=== PATIENT | male | born 1980 | race Hispanic/Latino ===

== ENCOUNTER 2017-03-17 01:49 | Emergency (ER) | payer OTHER ==
[2017-03-17 02:42] VITALS: BP 110/77
[2017-03-17] MEDS ORDERED: FUL-GLO OP ONE (05:22)
[2017-03-17] MEDS ORDERED: TETRACAINE 0.5% OU ONE (05:23)
--- NOTE | 2017-03-17 07:26 | Emergency Department Report ---
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 denies: eye pain (patient denies pain and refused pain medication) , eye discharge, vision change ENT: denies: ear pain, throat pain Respiratory: denies: cough, shortness of breath, wheezing Cardiovascular: denies: chest pain, palpitations Endocrine: no symptoms reported Gastrointestinal: denies: abdominal pain, nausea, diarrhea Genitourinary: denies: urgency, dysuria Musculoskeletal: denies: back pain, joint swelling, arthralgia Skin: denies: rash, lesions Neurological: denies: headache, weakness, paresthesias Psychiatric: denies: anxiety, depression Hematological/Lymphatic: denies: easy bleeding, easy bruising ED Past Medical Hx - Past Medical History Previous Medical History?: No - Surgical History Past Surgical History?: No - Social History Smoking Status: Current Every Day Smoker Substance Use Type: Alcohol - Medications Home Medications: Home Medications Medication Instructions Recorded Confirmed Last Taken Type HYDROcodone/APAP 5-325 [[place] 1 each PO Q6HR PRN #15 tablet 03/17/17 Unknown Rx 5/325] Tobramycin 1 drop OS QID #1 bottle 03/17/17 Unknown Rx Eye Injury Exam - Exam General: Vital signs noted. No distress. Alert and acting appropriately. - Visual Acuity Left Vision Acuity Degree: 20/30 Eye Exam: Left Injection, Left EOMI, Left Eye Foreign Body, Left Fluorescein Uptake (wood's lamp), Neither Abnormal Pupil (none), Neither Lid Foreign Body, Neither Mucous Discharge, Neither Purulent Discharge, Neither Photophobia (none) Right Vision Acuity Degree: 20/30 Bilateral Vision Acuity Degree: 20/30 ED Course Vital Signs 03/17/17 02:07 Temperature 97.6 F Pulse Rate 63 Respiratory 18 Rate Blood Pressure 110/77 [Right] O2 Sat by Pulse 97 Oximetry ED Medical Decision Making - Medical Decision Making 36 year old male presents to ED with left eye foreign body consistent with rust ring. patient will be referred to back order clerk for removal and understands he needs to follow up with Eye MD within 24 hours. no corneal penetration noted on examination. patient will be given pain medication and antibiotic eye drops until further evaluation by back order clerk today. patient is stable, neurologically intact and in no acute distress. patient has also been seen and examined by Dr. Suazo. Critical care attestation.: If time is entered above; I have spent that time in minutes in the direct care of this critically ill patient, excluding procedure time. ED Disposition Clinical Impression: Corneal rust ring of left eye Disposition: DC-01 TO HOME OR SELFCARE Is pt being admited?: No Does the pt Need Aspirin: No Condition: Stable Instructions: Eye Foreign Body (ED) Additional Instructions: [facility] [place], [place] [phone] [facility] specialists [facility] [phone] [place] [place] Liborio Skinner MD [phone] Prescriptions: HYDROcodone/APAP 5-325 [[place] 5/325] 1 each PO Q6HR PRN #15 tablet PRN Reason: Pain Tobramycin 1 drop OS QID #1 bottle Referrals: JULISSA NASSAR MD [Staff Physician] - [facility] CAREMD [Primary Care Provider] - 3-5 Days Forms: Work/School Release Form(ED)
--- NOTE | 2017-03-17 07:49 | Cat Scan Report ---
FINAL REPORT PROCEDURE: CT ORBIT/EAR/FOSSA WO CON TECHNIQUE: Computerized axial tomography of the orbits was performed without contrast material. HISTORY: foreign body in eye COMPARISON: No prior studies are available for comparison. FINDINGS: Bones and sinuses: Normal. Globes: Normal. Extraocular muscles: Normal. Optic nerves: Normal. Lacrimal glands: Normal. IMPRESSION: No foreign bodies identified. There is no fracture. There are no soft tissue abnormalities. The paranasal sinuses are clear.
== END 2017-03-17 07:02 | disposition home or self-care (01) ==
LOC: ED 01:49
DX: T15.02XA Foreign body in cornea, left eye, initial encounter (principal); F17.200 Nicotine dependence, unspecified, uncomplicated; W45.8XXA Other foreign body or object entering through skin, initial encounter; Y93.89 Activity, other specified; Y99.9 Unspecified external cause status; Y92.89 Other specified places as the place of occurrence of the external cause
CPT/HCPCS: 70480